=== PATIENT | female | born 1985 | race Caucasian/White ===

== ENCOUNTER → 2018-12-10 09:08 | Outpatient (CLI) | payer OTHER, SELFPAY ==
--- NOTE | 2018-12-10 | DI.US.S_ITS ---
PROCEDURE: US OB <= 14 WEEKS FETUS INDICATIONS: SIZE AND DATES OUTSIDE/PRIOR DATING DATA: Last menstrual period (LMP): 10/23/18. LMP-based estimated date of delivery (KALINA): 07/30/19. First dating scan (date and location): 12/10/18. Estimated date of delivery (KALINA) from first dating scan: 07/31/18. TECHNIQUE: Real-time scanning was performed of the fetus and maternal pelvic organs, with image documentation. Endovaginal scanning was also performed to better visualize the fetus and maternal ovaries. COMPARISON: [facility], , PELVIC COMPLETE, 10/04/2013, 12:42. FINDINGS: Embryo: [place]-rump length measures 8 mm corresponding to 6 weeks 5 days. Measurement variability in dating: +/- 4 weeks by LMP, +/- 7 days by mean sac diameter (use before 6 weeks gestation if crown-rump length not able to be measured), +/- 5 days by crown-rump length (up to 8 weeks 6 days gestation), +/- 7 days by crown-rump length (up to 13 weeks 6 days gestation). Maternal organs: Simple right ovarian cyst measuring 5.2 x 4.3 x 3.2 cm and there is a 1.5 cm left ovarian cyst. 1.8 cm left anterior intramural fibroid Limited images through the kidneys demonstrate no hydronephrosis. IMPRESSION: 1. 6 week 5 day single living IUP. 2. 5.2 cm right ovarian cyst. Followup recommended. Dictated by: Christiano GLEASON Interpreted: Boris Adkins MD on 12/10/2018 at 13:41 Approved by: Boris Adkins M.D. on 12/10/2018 at 17:00
== END ==
PROVIDERS: PCP Family Medicine; Visit Provider Family Medicine
DX: O34.81 Maternal care for other abnormalities of pelvic organs, first trimester (principal); N83.291 Other ovarian cyst, right side; Z3A.01 Less than 8 weeks gestation of pregnancy
CPT/HCPCS: 76801; 76817

== ENCOUNTER → 2019-03-23 09:05 | Outpatient (CLI) | payer OTHER, SELFPAY ==
--- NOTE | 2019-03-23 | DI.US.S_ITS ---
PROCEDURE: US OB >= 14 WEEKS FETUS INDICATIONS: ANATOMY SCAN OUTSIDE/PRIOR DATING DATA: Last menstrual period (LMP): 10/23/18. LMP-based estimated date of delivery (KALINA): 07/30/19. First dating scan (date and location): 12/10/18, [facility]. Estimated date of delivery (KALINA) from first dating scan: 07/31/19. TECHNIQUE: Real-time scanning was performed of the fetus, with image documentation and biometric measurements. Endovaginal scanning: Was not performed. COMPARISON: [facility], , OB <= 14 WEEKS FETUS, 12/10/2018, 9:23. [facility], , PELVIC COMPLETE, 10/04/2013, 12:42. FINDINGS: General: A single intrauterine gestation is present. Presentation: Vertex. Placenta: Placental position is anterior, without previa. Amniotic fluid index: 14.1 cm, normal range is 5-24 cm. heart rate: 144 beats per minute. Maternal cervical canal: 3.5 cm long. Normal lower limit is 2.5 cm. biometrics: Biparietal diameter: 5.2 cm, for a gestational age of 21 weeks 6 days. Head circumference: 19.9 cm, for gestational age of 22 weeks zero days. Abdominal circumference: 17.7 cm, for gestational age of 22 weeks 4 days. Femur length: 3.9 cm, for gestational age of 22 weeks 5 days Estimated gestational age from initial scan: 21 weeks 3 days. Composite gestational age from present scan: 22 weeks 2 days. Estimated weight and percentile: 510 g, 92nd percentile Measurement variability for biometric dating: +/- 7 days from 14 weeks to 15 weeks 6 days gestation, +/- 10 days from 16 weeks to 21 weeks 6 days gestation, +/- 2 weeks from 22 weeks to 27 weeks 6 days gestation, +/- 3 weeks for 28 weeks gestation or later. weight reference: 4500 g or EFW >90/95% is considered macrosomia or large for gestational age. EFW <10% is small for gestational age. EFW 5% or less is considered intra-uterine growth restriction. Anatomic survey: Neuro: Ventricles are non-dilated at 6-7 mm. Cisterna magna is normal at 3 mm. Cerebellum is within normal limits in size (2.2 cm transverse) and morphology. Nuchal skin fold: Within normal limits at 2 mm. Face: Nose, lips, and facial profile no well evaluated on this exam. Spine: No ultrasound evidence for spina bifida. Heart: The heart and ventricular outflow tracts are not well evaluated on this exam. Diaphragm: Diaphragm appears intact. Stomach: Stomach is not well evaluated on this exam Kidneys: No ultrasound evidence of hydronephrosis. Cord: The umbilical cord is not well evaluated on this exam. Bladder: Within normal limits in size. Extremities: All 4 extremities identified. IMPRESSION: 1. Single intrauterine gestation with heart rate of 144 beats per minute, amniotic fluid index of 14.1 cm, and composite gestational age from present scan of 22 weeks 2 days. 2. The face (nose, lips, and facial profile), heart, ventricular outflow tracts, stomach, and umbilical cord are not well evaluated on this exam. Attention on followup exams recommended. Dictated by: Nickolas Robertson M.D. on 03/23/2019 at 18:16 Approved by: Nickolas Robertson M.D. on 03/23/2019 at 18:30
== END ==
PROVIDERS: PCP Family Medicine; Visit Provider Family Medicine
DX: Z36.89 Encounter for other specified antenatal screening (principal); Z3A.22 22 weeks gestation of pregnancy
CPT/HCPCS: 76811

== ENCOUNTER → 2019-03-31 07:40 | Outpatient (CLI) | payer OTHER, SELFPAY ==
--- NOTE | 2019-03-31 | DI.US.S_ITS ---
PROCEDURE: US OB FOLLOW UP INDICATIONS: RE-EVAL FACIAL PROFILE OUTSIDE/PRIOR DATING DATA: Last menstrual period (LMP): 10/23/18. LMP-based estimated date of delivery (KALINA): 07/30/19. First dating scan (date and location): 12/10/18, [facility]. Estimated date of delivery (KALINA) from first dating scan: 07/31/19. TECHNIQUE: Real-time scanning was performed of the fetus, with image documentation and biometric measurements. Endovaginal scanning: No COMPARISON: None. FINDINGS: General: A single living intrauterine gestation is present. Presentation: Breech. Placenta: Placental position is anterior, without previa. Amniotic fluid index: 10.2 cm, normal range is 5-24 cm. heart rate: 149 beats per minute. Maternal cervical canal: 4.5 cm long. Normal lower limit is 2.5 cm. biometrics: Biparietal diameter: 22 weeks 6 days Head circumference: 22 weeks 3 days Abdominal circumference: 23 weeks 2 days Femur length: 22 weeks 2 days Estimated gestational age from initial scan: 22 weeks 4 days Composite gestational age from present scan: 22 weeks 5 days Estimated weight and percentile: 534 g; 54 percentile Measurement variability for biometric dating: +/- 7 days from 14 weeks to 15 weeks 6 days gestation, +/- 10 days from 16 weeks to 21 weeks 6 days gestation, +/- 2 weeks from 22 weeks to 27 weeks 6 days gestation, +/- 3 weeks for 28 weeks gestation or later. weight reference: 4500 g or EFW >90/95% is considered macrosomia or large for gestational age. EFW <10% is small for gestational age. EFW 5% or less is considered intra-uterine growth restriction. Other: Normal appearance of the 4 chamber heart and cardiac outflow tracts. Each stomach and cord insertion site were not imaged. IMPRESSION: 1. Single living IUP we demonstrated an interval growth is normal. 2. Appearance of the four-chamber heart and cardiac outflow tracts. The stomach and cord insertion were not imaged. Dictated by: Christiano GLEASON Interpreted: Luciano Menchaca MD on 03/31/2019 at 11:31 Approved by: Boris Adkins M.D. on 04/05/2019 at 17:46
== END ==
PROVIDERS: PCP Family Medicine; Visit Provider Family Medicine
DX: Z36.2 Encounter for other antenatal screening follow-up (principal); Z3A.22 22 weeks gestation of pregnancy
CPT/HCPCS: 76816

== ENCOUNTER 2019-06-28 16:31 | Outpatient (CLI) | payer OTHER, SELFPAY ==
--- NOTE | 2019-06-28 16:39 | DI.US.S_ITS ---
PROCEDURE: US OB BIOPHYSICAL PROFILE INDICATIONS: BPP, GROWTH OUTSIDE/PRIOR DATING DATA: Last menstrual period (LMP): 10/23/2018. LMP-based estimated date of delivery (KALINA): 07/30/2019. First dating scan (date and location): 12/10/2018 [facility]. Estimated date of delivery (KALINA) from first dating scan: 07/31/2019. TECHNIQUE: Real-time scanning was performed of the fetus, with image documentation and biometric measurements. Biophysical profile was also obtained. COMPARISON: [facility], , OB FOLLOW UP, 03/31/2019, 8:02. FINDINGS: General: A single living intrauterine gestation is present. Presentation: Vertex. Placenta: Placental position is anterior, without previa. Amniotic fluid index: 17 cm, normal range is 5-24 cm. Largest pocket 5.4 cm. heart rate: 144 beats per minute. biometrics: Biparietal diameter: 8.8 cm. 35 weeks 5 days. Head circumference: 31.4 cm. 35 weeks one day. Abdominal circumference: 31.6 cm. 35 weeks 4 days. Femur length: 7.0 cm. 35 weeks 5 days. Estimated gestational age from initial scan: 35 weeks 2 days. Composite gestational age from present scan: 35 weeks 3 days. Estimated weight and percentile: 2705 g. 56 percentile. Measurement variability for biometric dating: +/- 7 days from 14 weeks to 15 weeks 6 days gestation, +/- 10 days from 16 weeks to 21 weeks 6 days gestation, +/- 2 weeks from 22 weeks to 27 weeks 6 days gestation, +/- 3 weeks for 28 weeks gestation or later. weight reference: 4500 g or EFW >90/95% is considered macrosomia or large for gestational age. EFW <10% is small for gestational age. EFW 5% or less is considered intra-uterine growth restriction. Biophysical profile: Tone: 2 points. Movement: 2 points. Respiration: 2 points. Largest pocket of fluid: 2 points. IMPRESSION: 1. [place] living intrauterine at 35 weeks 3/7 days based on today's ultrasound. This is concordant with the prior ultrasound. There is expected interval growth. 2. Normal placenta and amniotic fluid. 3. Normal biophysical profile. Score 8 out of 8. Dictated by: Josh Fenton M.D. on 06/28/2019 at 18:54 Approved by: Josh Fenton M.D. on 06/28/2019 at 18:59
== END 2019-06-28 18:15 | disposition home or self-care (01) ==
LOC: OB 07-01 09:56
PROVIDERS: PCP Family Medicine; Visit Provider Family Medicine
DX: O24.419 Gestational diabetes mellitus in pregnancy, unspecified control (principal); Z3A.35 35 weeks gestation of pregnancy
CPT/HCPCS: 59025; 76819; G0378; G0379

== ENCOUNTER 2019-07-01 16:10 | Outpatient (CLI) | payer OTHER, SELFPAY | END 2019-07-01 16:57 | disposition home or self-care (01) | LOC: OB 07-02 09:55 | PROVIDERS: PCP Family Medicine; Visit Provider Family Medicine | DX: O24.415 Gestational diabetes mellitus in pregnancy, controlled by oral hypoglycemic drugs (principal); Z3A.35 35 weeks gestation of pregnancy | CPT/HCPCS: 59025; G0378; G0379 ==

== ENCOUNTER 2019-07-06 15:40 | Observation (INO) | payer OTHER, SELFPAY ==
--- NOTE | 2019-07-06 15:50 | DI.US.S_ITS ---
PROCEDURE: US OB BIOPHYSICAL PROFILE INDICATIONS: BPP OUTSIDE/PRIOR DATING DATA: Last menstrual period (LMP): 10/23/18. LMP-based estimated date of delivery (KALINA): 07/30/2019. First dating scan (date and location): 12/10/18. Estimated date of delivery (KALINA) from first dating scan: 07/31/2019. TECHNIQUE: Real-time scanning was performed of the fetus for biophysical profile, with image documentation. Endovaginal scanning: Deferred COMPARISON: [facility], OB BIOPHYSICAL PROFILE, 06/28/2019, 17:39. FINDINGS: General: A single living intrauterine gestation is present. Presentation: Vertex. Placenta: Placental position is anterior, without previa. Amniotic fluid index: 17.9 cm, normal range is 5-24 cm. the largest pocket is 5.5 cm. heart rate: 143 beats per minute. Maternal cervical canal: Not seen Estimated gestational age from initial scan: 36 weeks, 3 days. Biophysical profile: Tone: 2 points. Movement: 2 points. Respiration: 2 points. Largest pocket of fluid: 2 points. 5.5 cm IMPRESSION: 1. Single living injury or in vertex presentation. 2. Normal amniotic fluid volume. 3. Normal biophysical profile score of 8 out of 8. Dictated by: Shonna Harkins M.D. on 07/06/2019 at 18:52 Approved by: Shonna Harkins M.D. on 07/06/2019 at 18:54
== END 2019-07-06 17:53 | disposition home or self-care (01) ==
LOC: LABOR 15:43
PROVIDERS: Admitting Provider Family Medicine; PCP Family Medicine; Visit Provider Family Medicine
DX: O24.415 Gestational diabetes mellitus in pregnancy, controlled by oral hypoglycemic drugs (principal); Z3A.36 36 weeks gestation of pregnancy
CPT/HCPCS: 59025; 76819; G0378; G0379

== ENCOUNTER → 2019-07-07 09:26 | Outpatient (ROUT) | payer OTHER, SELFPAY | PROVIDERS: PCP Family Medicine; Visit Provider Family Medicine | DX: Z34.00 Encounter for supervision of normal first pregnancy, unspecified trimester (principal) | CPT/HCPCS: 87081 ==

== ENCOUNTER 2019-07-08 16:17 | Outpatient (CLI) | payer OTHER, SELFPAY ==
[2019-07-08 17:45] LABS: RBC Urine None Seen (0-5/HPF)
[2019-07-08 17:50] LABS: Bilirubin Urine UA NEGATIVE (NEGATIVE); Color Urine UA YELLOW; Glucose Urine UA NEGATIVE (Negative); Ketones Urine UA NEGATIVE (NEGATIVE); Leukocyte Esterase Urine UA 1+ (NEGATIVE); Nitrite Urine UA NEGATIVE (Negative); Occult Blood Urine UA NEGATIVE (Negative); Protein Urine UA NEGATIVE (Negative); Specific Gravity Urine UA 1.025 (1.000-1.035); Urobilinogen Urine UA 0.2 E.U./dL (0.2)
[2019-07-08 17:51] LABS: Appearance Urine UA Slightly Cloudy
[2019-07-08 18:00] LABS: Amorphous Sediment Urine 1+; Bacteria Urine Moderate (10-30); Culture Indicated Urine Specimen Cultured; Mucus Urine 1+ (Negative); Squamous Epithelial Cell Urine 1-5 /HPF (0-5/HPF); WBC Urine 10-30/HPF (0-5/HPF)
== END 2019-07-08 17:25 | disposition home or self-care (01) ==
LOC: LABOR 16:29 → OB 07-09 09:20
PROVIDERS: PCP Family Medicine; Visit Provider Family Medicine
DX: O24.415 Gestational diabetes mellitus in pregnancy, controlled by oral hypoglycemic drugs (principal); Z3A.36 36 weeks gestation of pregnancy
CPT/HCPCS: 59025; 81001; 87086; G0378; G0379

== ENCOUNTER 2019-07-12 16:15 | Outpatient (CLI) | payer OTHER, SELFPAY ==
--- NOTE | 2019-07-12 16:19 | DI.US.S_ITS ---
PROCEDURE: US OB BIOPHYSICAL PROFILE INDICATIONS: BPP/GROWTH OUTSIDE/PRIOR DATING DATA: Last menstrual period (LMP): 10/23/18. LMP-based estimated date of delivery (KALINA): 07/30/2019. First dating scan (date and location): 12/10/18. Estimated date of delivery (KALINA) from first dating scan: 07/31/2019. TECHNIQUE: Real-time scanning was performed of the fetus for biophysical profile, with image documentation. Color and pulse Doppler interrogation was also performed of the umbilical artery near its insertion into the placenta. Endovaginal scanning: Not performed COMPARISON: [facility], OB BIOPHYSICAL PROFILE, 07/06/2019, 17:39. FINDINGS: General: A single living intrauterine gestation is present. Presentation: Vertex. Placenta: Placental position is anterior, without previa. Amniotic fluid index: 19.3 cm, normal range is 5-24 cm. heart rate: 140 beats per minute. Estimated gestational age from initial scan: 37 weeks 2 days. Estimated gestational age based on current scan: 37 weeks 1 day Estimated weight: 3148 g, which is at the 56th percentile for gestational age Biophysical profile: Tone: 2 points. Movement: 2 points. Respiration: 2 points. Largest pocket of fluid: 2 points. IMPRESSION: 1. Single living intrauterine gestation. 2. Normal interval growth. 3. Normal biophysical profile score. Dictated by: Meryl Zayas M.D. on 07/12/2019 at 18:12 Approved by: Meryl Zayas M.D. on 07/12/2019 at 18:14
== END 2019-07-12 17:59 | disposition home or self-care (01) ==
LOC: OB 08-02 09:41
PROVIDERS: PCP Family Medicine; Visit Provider Family Medicine
DX: O24.419 Gestational diabetes mellitus in pregnancy, unspecified control (principal); Z3A.37 37 weeks gestation of pregnancy
CPT/HCPCS: 59025; 76819; G0378; G0379

== ENCOUNTER 2019-07-15 16:13 | Outpatient (CLI) | payer OTHER, SELFPAY | END 2019-07-15 16:54 | disposition home or self-care (01) | LOC: LABOR 16:16 → OB 07-16 11:19 | PROVIDERS: PCP Family Medicine; Visit Provider Family Medicine | DX: O24.415 Gestational diabetes mellitus in pregnancy, controlled by oral hypoglycemic drugs (principal); Z3A.37 37 weeks gestation of pregnancy | CPT/HCPCS: 59025; G0378; G0379 ==

== ENCOUNTER 2019-07-19 16:09 | Outpatient (CLI) | payer OTHER, SELFPAY ==
--- NOTE | 2019-07-19 16:12 | DI.US.S_ITS ---
PROCEDURE: US OB LIMITED INDICATIONS: GROWTH AND BPP OUTSIDE/PRIOR DATING DATA: Last menstrual period (LMP): 10/23/18. LMP-based estimated date of delivery (KALINA): 07/30/2019. First dating scan (date and location): 12/10/18. Estimated date of delivery (KALINA) from first dating scan: 07/31/2019. TECHNIQUE: Real-time scanning was performed of the fetus, with image documentation and biometric measurements. A biophysical profile was also performed. COMPARISON: [facility], OB BIOPHYSICAL PROFILE, 07/12/2019, 17:34. FINDINGS: General: A single live intrauterine gestation is present. Presentation: Vertex. Placenta: Placental position is anterior, without previa. Amniotic fluid index: 19.9 cm, normal range is 5-24 cm. heart rate: 155 beats per minute. Maternal cervical canal: Not seen. biometrics: Biparietal diameter: 9.4 cm equals 38 weeks 2 days Head circumference: 33.7 cm equals 38 weeks 5 days Abdominal circumference: 34.6 cm equals 38 weeks 4 days Femur length: 7.5 cm equals 38 weeks 1 day Estimated gestational age from initial scan: 38 weeks 2 days. Composite gestational age from present scan: 38 weeks 3 days Estimated weight and percentile: 3487 g, 68% Measurement variability for biometric dating: +/- 7 days from 14 weeks to 15 weeks 6 days gestation, +/- 10 days from 16 weeks to 21 weeks 6 days gestation, +/- 2 weeks from 22 weeks to 27 weeks 6 days gestation, +/- 3 weeks for 28 weeks gestation or later. weight reference: 4500 g or EFW >90/95% is considered macrosomia or large for gestational age. EFW <10% is small for gestational age. EFW 5% or less is considered intra-uterine growth restriction. Other: Not applicable. Biophysical profile: Tone: 2 points Movement: 2 points Respiration: 2 points Largest pocket: 2 points (largest pocket: 7.3 cm) IMPRESSION: Normal biophysical profile, 8/8 points. Normal interval growth when compared to the prior ultrasound examination. Dictated by: Anthony Vila M.D. on 07/19/2019 at 18:07 Approved by: Anthony Vila M.D. on 07/19/2019 at 18:10
== END 2019-07-19 17:13 | disposition home or self-care (01) ==
LOC: LABOR 16:43 → OB 07-20 11:22
PROVIDERS: PCP Family Medicine; Referring Provider Family Medicine; Visit Provider Family Medicine
DX: O24.419 Gestational diabetes mellitus in pregnancy, unspecified control (principal); Z3A.38 38 weeks gestation of pregnancy
CPT/HCPCS: 59025; 76815; G0378; G0379

== ENCOUNTER 2019-07-22 16:08 | Outpatient (CLI) | payer OTHER, SELFPAY | END 2019-07-22 17:00 | disposition home or self-care (01) | LOC: LABOR 16:56 → OB 07-23 11:26 | PROVIDERS: PCP Family Medicine; Referring Provider Family Medicine; Visit Provider Family Medicine | DX: O24.415 Gestational diabetes mellitus in pregnancy, controlled by oral hypoglycemic drugs (principal); Z3A.38 38 weeks gestation of pregnancy | CPT/HCPCS: 59025; G0378; G0379 ==

== ENCOUNTER 2019-07-27 19:09 | Observation (INO) | payer OTHER, SELFPAY ==
[2019-07-27 20:27] LABS: Add Manual Diff / Slide Review NO; Basophils Absolute Auto 100 /uL (0-100); Basophils Percent Auto 0.6 % (0-2); Eosinophils Absolute Auto 100 /uL (0-450); Eosinophils Percent Auto 0.5 % (2-4); Hematocrit 35.5 % (36-46); Lymphocytes Absolute Auto 3000 /uL (1100-4500); Lymphocytes Percent Auto 27.7 % (25-40); Mean Corpuscular HGB Conc 33.9 % (30-36); Mean Corpuscular Hemoglobin 28.5 PG (26-34); Mean Corpuscular Volume 84.1 fL (80-100); Monocytes Absolute Auto 600 /uL (0-900); Monocytes Percent Auto 5.8 % (3-14); Neutrophils Absolute Auto 7000 /uL (1500-7000); Neutrophils Percent Auto 65.4 % (50-75); Platelet Count 277 X10^3/uL (150-400); Red Blood Cell Count 4.22 X10^6/uL (4.0-5.2); Red Cell Distribution Width 14.2 % (11.6-14.8); White Blood Cell Count 10.7 X10^3/uL (4.5-11.0)
[2019-07-27] MEDS: DINOPROSTONE VAG (CERVIDIL) 10 MG VAG (20:34)
[2019-07-27] MEDS: METFORMIN XR 500 MG TABLET 1000 MG PO (21:11)
[2019-07-27] MEDS: ZOLPIDEM 5 MG TABLET 10 MG PO (21:11)
[2019-07-27 22:17] VITALS: BP 155/86
[2019-07-28] MEDS: METFORMIN XR 500 MG TABLET 1000 MG PO (09:33)
[2019-07-28 10:40] VITALS: BP 133/78; PULSE 88; RESP 17; TEMP 36.6
== END 2019-07-28 10:35 | disposition home or self-care (01) ==
PROVIDERS: Admitting Provider Family Medicine; PCP Family Medicine; Visit Provider Family Medicine
DX: O24.415 Gestational diabetes mellitus in pregnancy, controlled by oral hypoglycemic drugs (principal); Z3A.39 39 weeks gestation of pregnancy
CPT/HCPCS: 85025; 86850; 86900; 86901; G0378; G0379

== ENCOUNTER 2019-07-30 09:24 | Outpatient (CLI) | payer OTHER, SELFPAY ==
--- NOTE | 2019-07-30 09:51 | DI.US.S_ITS ---
PROCEDURE: US OB BIOPHYSICAL PROFILE INDICATIONS: POST DATES OUTSIDE/PRIOR DATING DATA: Last menstrual period (LMP): 10/23/2018. LMP-based estimated date of delivery (KALINA): 07/30/2019. First dating scan (date and location): 12/10/[address] [facility]. Estimated date of delivery (KALINA) from first dating scan: 07/31/2019. TECHNIQUE: Real-time scanning was performed of the fetus for biophysical profile, with image documentation. Color and pulse Doppler interrogation was also performed of the umbilical artery near its insertion into the placenta. Endovaginal scanning: Not performed COMPARISON: [facility], OB LIMITED, 07/19/2019, 16:51. [facility], OB BIOPHYSICAL PROFILE, 07/12/2019, 17:34. FINDINGS: General: A single living intrauterine gestation is present. Presentation: Vertex. Placenta: Placental position is anterior, without previa. Amniotic fluid index: 17.8 cm, normal range is 5-24 cm. heart rate: 135 beats per minute. Maternal cervical canal: Not well-seen cm. Estimated gestational age from initial scan: 39 weeks 6 days. Biophysical profile: Tone: 2 points. Movement: 2 points. Respiration: 2 points. Largest pocket of fluid: 2 points. IMPRESSION: 1. Richey living intrauterine at 39 weeks 6 days based on prior ultrasound. Vertex position. 2. Normal placenta and amniotic fluid. 3. Normal biophysical profile. Score 8 out of 8. Dictated by: Josh Fenton M.D. on 07/30/2019 at 11:01 Approved by: Josh Fenton M.D. on 07/30/2019 at 11:04
== END 2019-07-30 10:35 | disposition home or self-care (01) ==
LOC: OB 08-02 09:36
PROVIDERS: PCP Family Medicine; Referring Provider Family Medicine; Visit Provider Family Medicine
DX: O24.419 Gestational diabetes mellitus in pregnancy, unspecified control (principal); Z3A.39 39 weeks gestation of pregnancy
CPT/HCPCS: 59025; 76819; G0378; G0379

== ENCOUNTER 2019-07-31 02:25 | Inpatient (IN) | payer OTHER, SELFPAY ==
[2019-07-31 03:31] LABS: Add Manual Diff / Slide Review NO; Basophils Absolute Auto 100 /uL (0-100); Eosinophils Absolute Auto 100 /uL (0-450); Eosinophils Percent Auto 1.1 % (2-4); Hematocrit 35.8 % (36-46); Lymphocytes Absolute Auto 3600 /uL (1100-4500); Lymphocytes Percent Auto 32.3 % (25-40); Mean Corpuscular HGB Conc 33.6 % (30-36); Mean Corpuscular Hemoglobin 28.2 PG (26-34); Mean Corpuscular Volume 83.9 fL (80-100); Monocytes Absolute Auto 1100 /uL (0-900); Monocytes Percent Auto 9.7 % (3-14); Neutrophils Absolute Auto 6300 /uL (1500-7000); Neutrophils Percent Auto 55.9 % (50-75); Platelet Count 267 X10^3/uL (150-400); Red Blood Cell Count 4.27 X10^6/uL (4.0-5.2); Red Cell Distribution Width 14.4 % (11.6-14.8); White Blood Cell Count 11.3 X10^3/uL (4.5-11.0)
[2019-07-31 03:32] VITALS: BP 133/77
[2019-07-31] MEDS: METFORMIN HCL 500 MG TABLET 1000 MG PO ×2 (08:29→18:00)
--- NOTE | 2019-07-31 10:31 | P.HPOB_ITS ---
OB HPI Date/Time Date of admission: 07/31/19 Date Patient Seen: 07/31/19 Time Patient Seen: 10:44 History of Present Condition Chief complaint: EVALUATION OF LABOR : 1 Para: 0 Estimated Date of Delivery: 07/30/19 Estimated Gestational Age (weeks): 40 Narrative: Lilian Rocha is a 34 year old female with EDC of 07/30/2019 with excellent dates and early care. Patient has a history of gestational diabetes and has been followed closely with excellent results sugars have been well controlled with metformin b.i.d.. 1000 mg. growth has been good. Anesthesia been normal. No other complications of . And feeling well. She had been attempted at induction on Friday night Friday to with no cervical change. She was followed closely had an NST and biophysical profile which were normal on Friday. Woke up last night when she went to the bathroom and had large gush of fluid. Clear with slight pink. Baby has been moving well. Presented to unit and has slowly had slight increase in contractions. No fevers no chills GBS negative no other complaint or problem. Has been her sense and having not a significant amount other changes. Sugar was 87 this morning. Last ultrasound was just over 7 lb. Estimated weight period 2 weeks ago. Otherwise no abnormality or issue. 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 . History of Present care: good care Dating criteria: LMP confirmed by 1st trimester US Ultrasounds: normal mid trimester US Obstetrical complications: gestational diabetes Medical complications: none Preadmission Labs Blood type: O (+) positive -: Antibody screen: negative, Cystic fibrosis screen: unknown, GBS status: negative, HBsAG: negative, HIV: negative, HSV 1: negative, HSV 2: negative and RPR/VDLR: negative -: Chlamydia screen: not detected and Gonorrhea screen: not detected -: Rubella: immune and Varicella: immune HCT: 35 HCAB: reactive PAP: Normal Integrated screen: nl Narrative: Normal Prior (ies) History: None Evaluation Evaluation Baseline heart rate: 140 Category of Tracing: I Cervical dilation (cm): 1 Cervical effacement (%): 60 station: -2 Laboratory results: Laboratory Tests 07/31/19 07/31/19 02:45 02:45 WBC 11.3 H RBC 4.27 Hgb 12.0 Hct 35.8 L MCV 83.9 MCH 28.2 MCHC 33.6 RDW 14.4 Plt Count 267 Neut % (Auto) 55.9 Lymph % (Auto) 32.3 [place] % (Auto) 9.7 Eos % (Auto) 1.1 L Baso % (Auto) 1.0 Neut # (Auto) 6300 Lymph # (Auto) 3600 [place] # (Auto) 1100 H Eos # (Auto) 100 Baso # (Auto) 100 Blood Type O Positive Antibody Screen Negative [facility] Medical History ADHD (attention deficit hyperactivity disorder) (Chronic 1997) Anxiety (Chronic 1999) Eczema (Chronic 2008) Obesity (Chronic) Tuberculosis (Resolved 2001) Surgical History Anesthesia (Resolved) Status post tonsillectomy and adenoidectomy (Resolved 1994) Family History Father Age: 66 Hypercholesterolemia Grandfather Age: 92 [place], old Mother Age: 70 Hypercholesterolemia Grandfather Alcoholism Grandmother Diabetes mellitus COPD (chronic obstructive pulmonary disease) Social History Smoking Status: Former smoker Meds Home Medications and Allergies Home Medications Medication Instructions Recorded Confirmed Type Mynatal 1 cap PO QDAY #90 cap 06/06/17 07/31/19 Rx metformin [Fortamet] 500 mg PO BID #180 tab 06/06/17 07/31/19 Rx Allergies Allergy/AdvReac Type Severity Reaction Status Date / Time No Known Drug Allergies Allergy Verified 07/31/19 03:36 Review of Systems Review of Systems Narrative: Alert smiling female lying in bed no acute distress Exam Vital Signs (past 8 hours): - 07/31/19 03:32 Blood Pressure 133/77 Narrative Exam Narrative: Alert female no acute distress Objective Labs Result Diagrams: 07/31/19 02:45 Labs: Laboratory Results - last 24 hr 07/31/19 07/31/19 02:45 02:45 WBC 11.3 H RBC 4.27 Hgb 12.0 Hct 35.8 L MCV 83.9 MCH 28.2 MCHC 33.6 RDW 14.4 Plt Count 267 Neut % (Auto) 55.9 Lymph % (Auto) 32.3 [place] % (Auto) 9.7 Eos % (Auto) 1.1 L Baso % (Auto) 1.0 Neut # (Auto) 6300 Lymph # (Auto) 3600 [place] # (Auto) 1100 H Eos # (Auto) 100 Baso # (Auto) 100 Blood Type O Positive Antibody Screen Negative Assessment and Plan Assessment and Plan Assessment and Plan narrative: Forty week gestational diabetes with no other complications good growth normal evaluations with good strength. Would on long discussion. She has now been ruptured for a while we discussed Pitocin she would like to give it 2 more hours. At that time will start Pitocin her cervix certainly is changed but not perfect we discussed sugar management and expectations on delivery. Does have a complication of obesity will see how things go re-evaluate 2 hours
--- NOTE | 2019-07-31 12:35 | PM.OBPNLAB ---
Date/Time Date Patient Seen: 07/31/19 Time Patient Seen: 12:35 Pain Control Pain control: tolerating well Pelvic Exam Dilation (cm): 1 Effacement (%): 60 station: -2 Amniotic membrane status: Ruptured Contractions Contractions on admission: irregular Status status: Category l Assessment and Plan Assessment: other Comments: Minimal contractions at this point. No fever. Vital signs are stable. Will begin Pitocin. Discussed with patient. Labor goals and expectations discussed. Questions answered. Follow-up in 2 hours
[2019-07-31] MEDS: LACTATED RINGERS 1,000 ML 100 ML IV ×2 (12:49→18:14)
[2019-07-31] MEDS: OXYTOCIN PREMIX 30 UNIT/500 ML PLAST..BAG IV (12:49)
--- NOTE | 2019-07-31 17:26 | P.PN_ITS ---
Subjective Subjective Date Patient Seen: 07/31/19 Time Patient Seen: 17:26 Interval history: Overall feeling well. Having a lot of back labor. Difficult time picking up contractions and heart monitor. Has been a lot of work for nurse. No other changes. Otherwise feeling well. Tolerating labor well. He has been trying to move more and more. Exam Vital Signs (past 8 hours): Alert female standing in no acute distress Lungs are clear. Heart regular rate and rhythm. Abdomen was soft gravid nontender. Sterile vaginal exam is 3 cm 80% vertex -2 ruptured. Extremities are normal. Glucose POC: 115 Objective Labs Result Diagrams: 07/31/19 02:45 Labs: Laboratory Results - last 24 hr 07/31/19 07/31/19 02:45 02:45 WBC 11.3 H RBC 4.27 Hgb 12.0 Hct 35.8 L MCV 83.9 MCH 28.2 MCHC 33.6 RDW 14.4 Plt Count 267 Neut % (Auto) 55.9 Lymph % (Auto) 32.3 [place] % (Auto) 9.7 Eos % (Auto) 1.1 L Baso % (Auto) 1.0 Neut # (Auto) 6300 Lymph # (Auto) 3600 [place] # (Auto) 1100 H Eos # (Auto) 100 Baso # (Auto) 100 Blood Type O Positive Antibody Screen Negative Assessment & Plan Assessment & Plan narrative: Assessment latent phase labor. Pitocin continues. Will be easier now the internal monitors been placed. Seems to be working well. Sugar was slightly elevated earlier but now 88. Goal will be under 105 on co nsistent basis. Patient is still tolerating labor well. Attempted ultrasound difficult time but appeared to be occiput put posterior. Will make adjustments in labor now. Recheck in 4 hours period
--- NOTE | 2019-07-31 17:30 | PM.PROC.1 ---
Procedures Date/Time Date of procedure: 07/31/19 Time of procedure: 17:30 General Procedure description: Due to the fact g difficulty monitoring patient under sterile procedure a intrauterine catheter was placed without complications. As soon as that was placed through the cervix a internal heart monitor was placed both are working well. No complications patient tolerated well
[2019-07-31] MEDS: FENT 2MCG/ML BUPIV 0.125% EPI 200 MCG/100 ML PLAST..BAG 10 MCG EPIDURAL (19:30)
--- NOTE | 2019-07-31 21:10 | PM.PROC.1 ---
Procedures Date/Time Date of procedure: 07/31/19 Time of procedure: 21:10 General Procedure description: Under sterile procedure usual manner a IUPC was placed without complications. Patient tolerated well. Complications: none
--- NOTE | 2019-07-31 21:12 | PM.OBPNLAB ---
Date/Time Date Patient Seen: 07/31/19 Time Patient Seen: 21:12 Pain Control Pain control: epidural Comments: Overall doing well. Comfortably. IUPC was displaced. Otherwise doing well without complaint Pelvic Exam Dilation (cm): 6 Effacement (%): 608 station: -1 Amniotic membrane status: Ruptured Contractions Contractions on admission: regular Pitocin rate (mU/min): 4 Contraction pattern: Regular Status status: Category l Assessment and Plan Assessment: active labor Plan: continuous present management
[2019-08-01] MEDS: LACTATED RINGERS 1,000 ML 100 ML IV ×3 (01:07→12:41)
[2019-08-01] MEDS: FENT 2MCG/ML BUPIV 0.125% EPI 200 MCG/100 ML PLAST..BAG 10 MCG EPIDURAL (02:04)
[2019-08-01] MEDS: PENICILLIN G POTASSIUM 5,000,000 UNIT in DEXTROSE 5% IN WATER 250 ML IV (02:08)
[2019-08-01] MEDS: PENICILLIN G POTASSIUM 3,000,000 UNIT/50 ML FROZ.PIGGY 100 UNIT IV ×2 (06:19→10:25)
--- NOTE | 2019-08-01 07:57 | PM.OBPNLAB ---
Date/Time Date Patient Seen: 08/01/19 Time Patient Seen: 07:59 Pain Control Pain control: epidural Pelvic Exam Dilation (cm): 10 Effacement (%): 100 station: +2 Contractions Contraction pattern: Regular Status status: Category ll Comments: Slight decrease in variability with early decelerations with each Assessment and Plan Assessment: active labor Comments: Will be watching closely. Begin second-stage. Sugars have been good. Will follow. Hold vaginal delivery. Will see how things go
--- NOTE | 2019-08-01 10:14 | PM.OBPNLAB ---
Date/Time Date Patient Seen: 08/01/19 Time Patient Seen: 10:14 Pain Control Pain control: tolerating well Comments: Having some increased pain anterior. Pelvic Exam Dilation (cm): 10 Effacement (%): 100 station: +2 Amniotic membrane status: Ruptured Contractions Contractions on admission: regular Pitocin rate (mU/min): 10 Contraction pattern: Regular Status status: Category ll Comments: Heart rate has been variable averages been in the 140s but intermittently into the 170s. Still some early discolorations or variables with pushing does have adequate variability. Assessment and Plan Comments: Have been pushing now for 2 little over 2 hours we have had some descent but seems to be somewhat persistent now. Patient running out of strength. Will give it a little more time and then will discuss with OBGYN above possible forceps. Or at least discussion. Mom and dad understand. Questions answered.
--- NOTE | 2019-08-01 11:16 | P.CONS_ITS ---
History of Present Illness Consult details Date Patient Seen: 08/01/19 Time Patient Seen: 11:16 Chief complaint: EVALUATION OF LABOR Reason for consult: Evaluation for Forceps Requesting provider: Josh Seymour Narrative: Patient with gestational diabetes under good control throughout who was admitted for spontaneous rupture membranes. Patient had Pitocin begun and progressed normally to complete and pushing. After over 2 and 1/2 hours of pushing the patient had made progress but had not delivered. I was consulted for possible forceps delivery. Meds Home Medications and Allergies Home Medications Medication Instructions Recorded Confirmed Type Mynatal 1 cap PO QDAY #90 cap 06/06/17 07/31/19 Rx metformin [Fortamet] 500 mg PO BID #180 tab 06/06/17 07/31/19 Rx Allergies Allergy/AdvReac Type Severity Reaction Status Date / Time No Known Drug Allergies Allergy Verified 07/31/19 03:36 Review of Systems Review of Systems ROS: Yes All systems reviewed with the patient and are negative except as otherwise documented Exam Narrative Exam Narrative: 8-9 lb vertex fetus. Fetus appears to be in the occiput posterior position at 0 to -1 station. Decision was made to proceed with application of forceps. Saldivar catheter was removed. Risks of the procedure discussed with the patient which include mostly increasing vaginal and vulvar tears. Discuss that if the fetus was not delivered we would proceed with C- section. Patient was agreeable to attempt the forceps. Forceps were placed and with 1 contraction attempt to pull with a contraction did not reveal any change in descent. Decision was made to proceed with section. Objective Labs Result Diagrams: 07/31/19 02:45 Assessment & Plan Assessment and plan (1) Failure to progress in second stage of labor: Current visit: Yes Status: Acute Assessment & Plan narrative: Failure to progress in 2nd stage of labor with failure of delivery by forceps. Patient will proceed with section.
--- NOTE | 2019-08-01 11:16 | PM.OBPNLAB ---
Date/Time Date Patient Seen: 08/01/19 Time Patient Seen: 11:16 Pain Control Pain control: epidural Pelvic Exam Dilation (cm): 10 Effacement (%): 100 station: +2 Amniotic membrane status: Ruptured Contractions Contraction pattern: Regular Status status: Category ll Comments: Some decrease in heart rate with forceps placement now stable in the 150s Assessment and Plan Comments: Patient with mild increase in blood sugar but otherwise doing well. Push for him approximately 2-1/2 hours. Attempted forceps placement by Dr. Arnett which I appreciate greatly. Failed and now will proceed to emergent section. Discussed with patient. Questions answered. Consent signed.
--- NOTE | 2019-08-01 11:52 | SUR.OPER ---
Supine on Padded OR bed, head on pillow, safety belt at thigh, arms secured on padded arm boards at <90 degrees abduction. Bump under right buttock. Legs uncrossed with pillow under knees, gel pad to heels, tape over blanket to lower legs.
--- NOTE | 2019-08-01 12:15 | SUR.OPER ---
FHT's 61. Time of 1150 live male in distress. Cord blood x 2 and placenta to OB
--- NOTE | 2019-08-01 12:29 | SUR.OPER ---
Cord with RT and baby on ice.
[2019-08-01 12:53] VITALS: BP 136/90; PULSE 85; RESP 16; TEMP 36.9; O2SAT 100
[2019-08-01 12:58] VITALS: BP 143/89; PULSE 86; RESP 15; O2SAT 98
[2019-08-01 13:03] VITALS: BP 139/93; BP 143/89; PULSE 86; RESP 15; RESP 17; O2SAT 98; O2SAT 99
[2019-08-01 13:08] VITALS: BP 136/89; PULSE 83; RESP 23; O2SAT 99
[2019-08-01 13:13] VITALS: BP 147/90; PULSE 82; RESP 14; O2SAT 100
--- NOTE | 2019-08-01 13:36 | SUR.PHASEI ---
Pt was transferred via bed to OB. VS stable, fundus 2 below umbilicus, and peripad CDI.
--- NOTE | 2019-08-01 15:04 | PM.OP.1 ---
Operative Date/Time/Diagnoses Date of procedure: 08/01/19 Time of procedure: 11:30 Pre-op diagnosis: Gestational diabetic term with second-stage failure progress Post-op diagnosis: same Procedure & Clinicians Procedure: Primary low-transverse section Same procedure as scheduled: Yes Indications: Patient pushed for 2-1/2 hours. Was unable to get delivered. Forceps were placed and failed attempt was then taken to the operative theater Surgeon: Josh Seymour Gyroscopic Engineering Technician: Christiana Arnett Click Yes if Unassisted: No Anesthesia Type: Epidural Operative Notes Prosthetic devices, grafts, tissues, transplants, or devices: Male infant weighing 7 lb 1.6 oz. Resuscitation was required. Cord pH arterial 7.1. Occiput posterior presentation. Normal pelvic organs Applied: catheter Estimated Blood Loss (mL): 450 Blood products transfused: none Procedure in detail: Patient was taken to the operative very ros[place] after consent was signed. During placement of the Saldivar catheter heart tones were obtained in the 80s. Had been previously low with attempt to forceps but had recovered into the 140s to 150s. Due to this fact epidural at artery been prepped by anesthesiologist. Saldivar was placed and prep was done rapidly and we began operation. Pfannenstiel incision was made directly down to the fascia and then fascia was scored in the midline. Fascia was then elevated and extended with laterally to both sides. Wili is within used to grasp the superior aspect of bluntly dissected off except in the midline where it was incised. We then inferiorly elevated the fascia without complications along with midline sharp dissection. The midline was then entered with blunt dissection through the muscle layer to the peritoneum which was then grasped with forceps and bluntly entered. It was then it bluntly extended period bladder blade was placed. Bladder flap was then incised and developed bladder blade was then entered is. A low transverse incision was then made on the uterus with the had been pretty significantly down into the pelvis there was grossly a meconium fluid which has not been seen. Child with some difficulty getting out of pelvis but then came and delivered quickly. Cord was clamped and handed off to resuscitation team. Cord bloods were then taken after cord gas was obtained. Placed in ice. Placenta then delivered spontaneous intact 3 vessels. Urine cavity was then swiped with wet lap sponge x2. Corners the uterine incision was then grasped and elevated along with inferior aspect. Moderate bleeding on the left lateral side of the incision and this was included into the suture line with good results. It was noted the uterine tone was not consistent an Pitocin had already been given Methergine was given with good results. Which was done with 0 chromic locked. Incision was then re-evaluated and found to be a small bleeder on the left lower corner and failure rates that she was done. Excellent control. Imbricating stitch was then done with good results although still had some bleeding in the inferior aspect that was area of myometrium which seemed to be down close to the bladder that was brought up to the incision and bleeding improved. Sutured with 0 chromic. Irrigation was done no bleeding was noted. Bladder flap was then closed with running 3 0 Vicryl. Peritoneum was then closed with running 3-0 Vicryl.. Fascia was then closed with 0 Vicryl. Running. No complications. Irrigation done in the subcutaneous tissue. 330 Vicryl interrupted sutures were used to approximate the wound and close space. Incision was closed with running 4-0 Vicryl. Steri-Strips and dressing applied. All sponge instrument and needle counts were correct. Mother was in stable condition. Transferred to recovery Complications: none Post-operative Condition: stable Disposition: Acute Care Plan for aftercare: Routine care.
[2019-08-01] MEDS: KETOROLAC 30 MG/ML VIAL IV (18:30)
[2019-08-02] MEDS: KETOROLAC 30 MG/ML VIAL IV ×2 (00:28→06:14)
[2019-08-02] MEDS: LACTATED RINGERS 1,000 ML 100 ML IV (00:28)
[2019-08-02 05:56] LABS: Add Manual Diff / Slide Review NO; Basophils Absolute Auto 0 /uL (0-100); Basophils Percent Auto 0.2 % (0-2); Eosinophils Absolute Auto 0 /uL (0-450); Eosinophils Percent Auto 0.2 % (2-4); Hematocrit 27.3 % (36-46); Hemoglobin 9.2 g/dL (12.0-16.0); Lymphocytes Absolute Auto 2000 /uL (1100-4500); Lymphocytes Percent Auto 15.7 % (25-40); Mean Corpuscular HGB Conc 33.7 % (30-36); Mean Corpuscular Hemoglobin 28.4 PG (26-34); Mean Corpuscular Volume 84.5 fL (80-100); Monocytes Absolute Auto 800 /uL (0-900); Monocytes Percent Auto 6.5 % (3-14); Neutrophils Absolute Auto 9800 /uL (1500-7000); Neutrophils Percent Auto 77.4 % (50-75); Platelet Count 186 X10^3/uL (150-400); Red Blood Cell Count 3.24 X10^6/uL (4.0-5.2); Red Cell Distribution Width 14.6 % (11.6-14.8); White Blood Cell Count 12.6 X10^3/uL (4.5-11.0)
--- NOTE | 2019-08-02 07:50 | PM.OBPN.1 ---
Subjective - OB Subjective Patient comments: pain well controlled Narrative: Postop day 1. Feeling pretty well. Up and showered. Moving well. Pain is well controlled. Minimal lochia. Otherwise no new complaints. Date Patient Seen: 08/02/19 Time Patient Seen: 07:51 Exam Vital Signs (past 8 hours): Oxygen Delivery Method Room Air Narrative Exam Narrative: Alert smiling female in no acute distress. Lungs clear. Heart regular rate and rhythm. Abdomen moderate tenderness lower quadrants uterus is firm. Incision is clean and dry. Extremities without cyanosis clubbing edema Objective Labs Result Diagrams: 08/02/19 05:45 Labs: Laboratory Results - last 24 hr 08/02/19 05:45 WBC 12.6 H RBC 3.24 L Hgb 9.2 L Hct 27.3 L MCV 84.5 MCH 28.4 MCHC 33.7 RDW 14.6 Plt Count 186 Neut % (Auto) 77.4 H Lymph % (Auto) 15.7 L [place] % (Auto) 6.5 Eos % (Auto) 0.2 L Baso % (Auto) 0.2 Neut # (Auto) 9800 H Lymph # (Auto) 2000 [place] # (Auto) 800 Eos # (Auto) 0 Baso # (Auto) 0 Assessment & Plan Assessment and Plan (1) Failure to progress in second stage of labor: Status: Acute Current Visit: Yes Plan Comments: day 1 overall doing well. Mobilizing. Minimal bleeding. Pain well controlled. Due to the fact that child was transferred may try to discharge this afternoon will see how she is doing. Re-evaluate at that time. Time Spent With Patient Time: Total time spent is greater than 50% in coordination of care (as documented) at patient's floor/unit and/or counseling patient: Time with patient: less than 15 minutes
[2019-08-02] MEDS: METFORMIN XR 500 MG TABLET PO ×2 (07:57→21:29)
[2019-08-02] MEDS: DOCUSATE 250 MG CAPSULE PO (07:58)
[2019-08-02] MEDS: PRENATAL VIT,CALC/IRON/FOLIC 1 TABLET 1 TAB PO (07:58)
[2019-08-02] MEDS: IBUPROFEN 600 MG TABLET PO ×2 (13:02→19:38)
[2019-08-02] MEDS: OXYCODONE/ACETAMINOPHEN 5/325 TABLET 1 TAB PO (13:18)
[2019-08-02] MEDS: OXYCODONE/ACETAMINOPHEN 5/325 TABLET 2 TAB PO ×2 (17:45→21:29)
[2019-08-03] MEDS: OXYCODONE/ACETAMINOPHEN 5/325 TABLET 2 TAB PO ×2 (01:19→05:33)
[2019-08-03] MEDS: IBUPROFEN 600 MG TABLET PO ×2 (01:19→08:46)
[2019-08-03] MEDS: DOCUSATE 250 MG CAPSULE PO (08:46)
[2019-08-03] MEDS: PRENATAL VIT,CALC/IRON/FOLIC 1 TABLET 1 TAB PO (08:47)
[2019-08-03] MEDS: METFORMIN XR 500 MG TABLET PO (08:47)
[2019-08-03 10:30] VITALS: BP 130/80; PULSE 82; RESP 14; TEMP 36.9
--- NOTE | 2019-08-03 13:22 | PM.DS.1 ---
History of Present Illness History of Present Illness Date Patient Seen: 08/03/19 Time Patient Seen: 08:00 Chief complaint: EVALUATION OF LABOR Narrative: Please see history and physical. Patient is a 34-year-old who presented with ruptured membranes. GBS negative. NST and biophysical profile is been reactive. Discharge Providers Provider Date of admission: 07/31/19 02:25 Discharge Date: 08/03/19 Primary care physician: Daniela Mcmanus MD Consults: Dr. Christiana Arnett 08/01/19 15:01 Consult to Cutting And Creasing Press Operator Routine Comment: Discharge provider: Josh Seymour MD Summary Hospital Course Discharge Diagnosis: 40-1/ day intrauterine . Spontaneous rupture of membranes Second-stage arrest Hospital Course: Patient was transferred from recovery and actually feeling quite well. Pain was adequately controlled. Minimal bleeding. Patient was given Methergine in the operative theater. She otherwise was doing actually quite well. On day 1 postop she was up and ambulating and Saldivar was discontinued early in the day. She had no nausea or vomiting. Pain was easily controlled with intermittent Percocet and ibuprofen. She had no nausea or vomiting. Bleeding was minimal. Follow-up hematocrit was 27. She continued to improve throughout the day. Was able to shower and feeling quite well. She began pumping due to the fact that her child was transferred to [facility]. Otherwise no significant new changes or complaints. She continued improvements requesting to go home on day 2. Pain was well controlled she was feeling very well she was ambulating easily and having no major issues. Otherwise doing well. Patient was discharged to home. Stable condition. Status at Discharge Cognitive/behavioral status at discharge: oriented Overall status at discharge: patient is progressing back to baseline Time Spent with Patient Time spent: Greater than 30 minutes Exam Vital Signs (past 8 hours): - 08/03/19 10:30 Temperature 98.4 F Pulse Rate 82 Respiratory Rate 14 Blood Pressure 130/80 Oxygen Delivery Method Room Air Narrative Exam Narrative: Alert smiling female in no acute distress. Lungs are clear. Heart regular rate and rhythm. Incision is clean and dry. Abdomen is soft positive bowel sounds uterus is firm intact extremities without cyanosis clubbing edema. No calf tenderness. Neurologic exam is completely normal. Objective Labs Result Diagrams: 08/02/19 05:45 Discharge Plan Discharge Plan Patient Disposition: Home Discharge orders & Medications Prescriptions: New oxycodone-acetaminophen 5-325 mg Tablet 2 tab PO Q4HR PRN (Reason: Pain, Severe (7-10)) Qty: 42 RF: 0 ibuprofen 600 mg Tablet 600 mg PO Q6HR PRN (Reason: Fever/Mild Pain (1-3)) Qty: 90 RF: 0 docusate sodium 250 mg Capsule 250 mg PO DAILY Qty: 60 RF: 0 Discontinued metformin [Fortamet] 500 MG tablet extended release 24hr 500 mg PO BID Qty: 180 RF: 3 Mynatal 1 EACH capsule 1 cap PO QDAY Qty: 90 RF: 3 Follow up/Referrals: Josh Seymour MD [Physician] - 2 Weeks Daniela Mcmanus MD [Primary Care Provider] - (please follow up w/ Dr. Mcmanus on Friday, Aug 09 @ 2pm) Diet/Activity/Treatments Diet: Diet as Tolerated Activity: no lifting greater than 15 pounds Skin/Wound/Dressing Care Report to your healthcare provider any signs of infection, such as:: chills, fever, increased pain, unusual drainage and unusual redness Visit Report/Discharge Packet Instructions: DI for Stand Alone Forms: Discharge: Care, Discharge: [facility] Visit Report Forms: Patient Portal/API, Stroke Signs & Symptoms Discharge Data Primary Care Provider: Daniela Mcmanus Discharges patient from system. Discharge Date/Time: 08/03/19 10:30
== END 2019-08-03 10:30 | disposition home or self-care (01) | DRG 788 ==
PROVIDERS: Specialist; Admitting Provider Family Medicine; PCP Family Medicine; Referring Provider Family Medicine; Visit Provider Family Medicine
PROC: 10D00Z1 Extraction of Products of Conception, Low, Open Approach (ICD-10-PCS; CPT 59514; principal; 2019-08-01 11:30)
DX: O24.425 Gestational diabetes mellitus in childbirth, controlled by oral hypoglycemic drugs (principal); Z3A.40 40 weeks gestation of pregnancy; Z37.0 Single live birth; O66.5 Attempted application of vacuum extractor and forceps; O62.1 Secondary uterine inertia
CPT/HCPCS: 01967; 01968; 36415; 59025; 59050; 59514; 76815; 76819; 84112; 85025; 86850; 86900; 86901; G0379; J1885; J2274; J2540; J2590; J3010

== ENCOUNTER → 2021-10-03 15:09 | Outpatient (CLI) | payer OTHER, SELFPAY ==
--- NOTE | 2021-10-24 10:50 | P.HOLT.S_ITS ---
Stamping Mill Tender Report Referral & Results Date Patient Seen: 10/03/21 Requesting provider: Daniela Mcmanus Indication: Palpitations Duration of monitoring (days): 3 Diary information: There were no patient events to review Data: Minimum heart rate identified was 53 beats per minute at 22:25 on 10/03/2021 Maximum heart rate was 175 beats per minute at 15:26 on 10/05/2021 Less than 1% of identified beats were ventricular or supraventricular ectopic in origin, which would classify them as rare. 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
== END ==
PROVIDERS: Family Provider Family Medicine; PCP Family Medicine; Referring Provider Family Medicine; Visit Provider Family Medicine
DX: R00.2 Palpitations (principal)
CPT/HCPCS: 93242; 93244